=== PATIENT | male | born 1965 | race Caucasian/White ===

== ENCOUNTER 2018-08-24 11:10 | Emergency (ER) | payer OTHER ==
[~2018-08-24] VITALS: Ht 165.1 cm; Wt 63.5 kg
[2018-08-24 11:18] VITALS: BP 146/93; Ht 165.1 cm; Wt 63.5 kg
== END 2018-08-24 11:30 | disposition left against medical advice (07) ==
LOC: ED 11:10
DX: Z53.21 Procedure and treatment not carried out due to patient leaving prior to being seen by health care provider (principal)

== ENCOUNTER 2018-08-24 13:04 | Inpatient (IN) | payer OTHER ==
[~2018-08-24] VITALS: Ht 165.1 cm; Wt 65.8 kg
[2018-08-24 13:15] VITALS: Ht 165.1 cm; Wt 65.8 kg
--- NOTE | 2018-08-24 13:56 | NUR ---
TO [place] AREA AFTER BEING ON WALL/BED DELAY, TRIAGE WAS DONE EARLIER WHILE ON BED DELAY.
--- NOTE | 2018-08-24 14:15 | NUR ---
PT PRESENTS TO ED BIB AMBULANCE AFTER ELOPING FROM ED EARLIER TODAY. PER EMS PT WAS FOUND WALKING IN TRAFFIC. EARLIER TODAY PT WAS BIB AMBULANCE FOR INGESTING UNKNOWN AMOUNTS OF ASPRIN AND HIS FATHERS MEDICATION. PT DENIED SUICIDAL IDEATION DURING FIRST VISIT AND CURRENTLY DENIES SUICIDAL IDEATION. PT ON K[place]A ATTEMPTING TO GET OUT OF BED, AAOX4, RESP E/U, ON FULL CM. WILL CONTINUE TO MONITOR.
[2018-08-24 14:23] LABS: BASOPHIL % 0.1 % (0-2); PLATELET COUNT 288 x10^3mcL (130-400); RED CELL DISTRIBUTION WIDTH 12.9 % (11.5-14.5)
[2018-08-24 14:30] LABS: CALCIUM 9.6 mg/dL (8.5-10.1); CARBON DIOXIDE 28.5 mmol/L (21-32); CHLORIDE SERUM 107 mmol/L (98-107); CREATININE SERUM 1.6 mg/dL (0.7-1.3); GFR1 48 mL/min; GLUCOSE SERUM 99 mg/dL (74-106); POTASSIUM SERUM 4.5 mmol/L (3.5-5.1); SODIUM SERUM 147 mmol/L (136-145)
--- NOTE | 2018-08-24 14:30 | NUR ---
PT IS ATTEMPTING TO GET OUT OF BED. PT BEING UNCOOPERATIVE. UNABLE TO REDIRECT PT ATTENTION. PT PLACE ON 4 POINT SOFT RESTRAINTS, PER DR. ANDERSON ORDER.
[2018-08-24 14:44] LABS: ALBUMIN 4.3 g/dL (3.4-5.0); ALKALINE PHOSPHATASE 71 U/L (46-116); ALT/SGPT 38 U/L (16-63); AST/SGOT 21 U/L (15-37); BILIRUBIN TOTAL 0.7 mg/dL (0.20-1.00); T4(THYROXINE) 8.1 ug/dL (4.7-13.3)
--- NOTE | 2018-08-24 14:54 | NUR ---
PT SISTER KANDICE ROWE [phone]; PT GIVES CONSENT FOR SISTER TO HAVE ALL MEDICAL INFORMATION REGARDING HIS CARE.
--- NOTE | 2018-08-24 16:17 | NUR ---
PT SISTER KANDICE AND BROTHER IN LAW STATED THEY ARE GOING TO GO HOME AND TO UPDATE THEM IF PT STATUS CHANGES. PT CONTINUES TO HALLUCINATE AND IS TALKING ABOUT THINGS THAT AREN'T IN THE ROOM.
[2018-08-24 17:24] LABS: AMPHETAMINE QUAL UR POSITIVE (See below)
--- NOTE | 2018-08-24 18:29 | NUR ---
PT SLEEPING ON GURNEY, CHEST RISE AND FALL NOTED, ON MONITOR, NO ACUTE DISTRESS NOTED AT THIS TIME.
--- NOTE | 2018-08-24 19:13 | NUR ---
REPORT GIVEN TO HECTOR MAY TO ASSUME CARE OF PT.
--- NOTE | 2018-08-24 19:39 | NUR ---
PT RESTING IN A POSITION OF COMFORT AT THIS TIME WITH EYES CLOSED. RESP EVEN AND UNLABORED, NO ACUTE DISTRESS NOTED. PT REMAINS ON FULL CM IN VIEW OF NURSE'S STATION.
--- NOTE | 2018-08-24 20:30 | NUR ---
PT WAKES EASILY TO VERBAL AND TACTILE STIMULI. PT RESTING WITH EYES CLOSED AT THIS TIME CHEST RISE AND FALL NOTED. PT ON FULL CM.
--- NOTE | 2018-08-24 21:20 | NUR ---
PT RESTING WITH EYES CLOSED, RESP EVEN AND UNLABORED, CHEST RISE AND FALL NOTED. PT WAKES TO VERBAL AND TACTILE STIMULI. PT REMAINS ON FULL CM, VSS.
--- NOTE | 2018-08-24 22:12 | NUR ---
SPOKE WITH TOM FROM [facility]. PER TOM, SALICYLATE LEVEL IS NOT DROPPING AT A QUICK ENOUGH RATE. PER TOM, REPEAT SALICYLATE LEVEL AND CMP AT 2300. IF LEVEL IS NOT BELOW 30 AT THAT TIME INITIATE BICARB DRIP. INITIATE IV FLUIDS AT THIS TIME. REPEAT SALICYLATE LEVEL Q2H UNTIL 2 CONSECUTIVE LEVELS ARE TRENDING DOWN. DR SINGH AWARE OF POISION CONTROL SUGGESTIONS.
--- NOTE | 2018-08-24 22:44 | NUR ---
PT CONTINUES TO REST WITH EYES CLOSED, RESP EVEN AND UNLABORED, NO ACUTE DISTRESS NOTED. PT REMAINS ON FULL CM.
[2018-08-25 00:24] LABS: CALCIUM 8.5 mg/dL (8.5-10.1); CREATININE SERUM 1.4 mg/dL (0.7-1.3); POTASSIUM SERUM 4.4 mmol/L (3.5-5.1)
--- NOTE | 2018-08-25 00:50 | NUR ---
PT ASSISTED WITH URINAL TO PROVIDE URINE SAMPLE FOR TESTING.
[2018-08-25 01:31] LABS: UA SPECIFIC GRAVITY 1.025 (1.005-1.035); microscopic required? YES; urine erythrocyte NEGATIVE (NEGATIVE)
--- NOTE | 2018-08-25 01:56 | NUR ---
SPOKE WITH TOM FROM [facility] TO FOLLOW UP ON PT CONDITION. TOM STATES THAT WHEN THE SALICYLATE LEVEL DROPS BELOW 30 THE SODIUM BICARBONATE DRIP CAN BE DISCONTINUED. DR SINGH AWARE.
--- NOTE | 2018-08-25 02:23 | NUR ---
PT SLEEPING ON GURNEY IN POSITION OF COMFORT. EASILY ARROUSEABLE. NO S/S OF DISTRESS. RESP E/U. COMFORT MEASURES IMPLEMENTED. WILL CONTINUE TO MONITOR.
--- NOTE | 2018-08-25 03:00 | NUR ---
R WRIST RESTRAINT REMOVED. PT CALM AND COOPERATIVE AT THIS TIME.
--- NOTE | 2018-08-25 03:20 | NUR ---
PT CONTINUES TO REST IN A POSITION OF COMFORT WITH EYES CLOSED. RESP EVEN AND UNLABORED, NO ACUTE DISTRESS NOTED. PT WAKES EASILY TO VERBAL AND TACTILE STIMULI.
--- NOTE | 2018-08-25 04:00 | NUR ---
LEFT WRIST RESTRAINT REMOVED. PT RESTING IN A POSITION OF COMFORT, RESP EVEN AND UNLABORED, NO ACUTE DISTRESS NOTED. PT REMAINS ON FULL CM.
--- NOTE | 2018-08-25 04:10 | NUR ---
PT RESTING WITH EYES CLOSED AT THIS TIME. RESP EVEN AND UNLABORED. PT REMAINS ON FULL CM IN VIEW OF NURSE'S STATION.
--- NOTE | 2018-08-25 04:42 | NUR ---
RESTRAINTS REMOVED AT THIS TIME. PT AOX4, RESP EVEN AND UNLABORED, NO ACUTE DISTRESS NOTED. PT CALM AND COOPERATIVE AT THIS TIME.
--- NOTE | 2018-08-25 05:30 | NUR ---
PT RESTING WITH EYES CLOSED, CHEST RISE AND FALL NOTED. PT REMAINS IN VIEW OF NURSE'S STATION, ON FULL CM.
[2018-08-25 06:14] LABS: BASOPHIL % 0.9 % (0-2); PLATELET COUNT 231 x10^3mcL (130-400); RED CELL DISTRIBUTION WIDTH 12.9 % (11.5-14.5)
[2018-08-25 06:34] LABS: ALBUMIN 3.6 g/dL (3.4-5.0); ALKALINE PHOSPHATASE 63 U/L (46-116); ALT/SGPT 28 U/L (16-63); AST/SGOT 35 U/L (15-37); BILIRUBIN TOTAL 0.89 mg/dL (0.20-1.00); CALCIUM 8.6 mg/dL (8.5-10.1); CARBON DIOXIDE 29.8 mmol/L (21-32); CHLORIDE SERUM 109 mmol/L (98-107); CREATININE SERUM 1.3 mg/dL (0.7-1.3); GFR1 > 60 mL/min; GLUCOSE SERUM 91 mg/dL (74-106); LIPASE 73 IU/L (73-393); MAGNESIUM 2.4 mg/dL (1.8-2.4); PHOSPHOROUS 3.7 mg/dL (2.5-4.9); POTASSIUM SERUM 3.4 mmol/L (3.5-5.1); SODIUM SERUM 148 mmol/L (136-145); TOTAL PROTEIN, SERUM 6.9 g/dL (6.4-8.2)
--- NOTE | 2018-08-25 06:54 | NUR ---
PT CONTINUES TO REST IN A POSITION OF COMFORT. RESP EVEN AND UNLABORED, NO ACUTE DISTRESS NOTED. PT ON FULL CM IN VIEW OF NURSE'S STATION.
--- NOTE | 2018-08-25 07:17 | NUR ---
RECEIVED REPORT FROM HECTOR MAY
--- NOTE | 2018-08-25 07:34 | NUR ---
REPORT OFF TO HECTOR ANGELES
--- NOTE | 2018-08-25 07:50 | NUR ---
RC'D PT FROM ED VIA [facility] WITH NURSE PRESENT AT BEDSIDE. A/A/O/X4, SPEECH CLEAR AND APPROPRAITE. PT DENIES INTENTIONS OF HARMING SELF OR OTHERS AT THIS TIME PT CURRENTLY 5150 HOLD WITH SITTER PRESENT AT BEDSIDE. ON TELE, DENIES CHEST PAIN/PRESSURE. PALP PULSES, NO EDEMA NOTED. RESPIRATIONS EQUAL AND UNLABORED. LUNGS CTA. ON RA, DENIES SOB. ABDOMEN SOFT AND NONTENDER. ACTIVE BS. DENIES N/V. VOIDS FREELY. SKIN W/D/I. PT DENIES PAIN AT THIS TIME. IV PATENT AND INTACT. BED IN LOW POSITION. CALL LIGHT IN REACH. WILL COTNINUE TO BUD
--- NOTE | 2018-08-25 09:17 | NUR ---
PHARMACY PAGED REGARDING SODIUM BICARB MEDICATION. PER PHARM, MEDICATION NEEDS TO BE REORDERED D/T THE MEDICATION WAS ENTERED A ER MED. WILL PAGE AND NOTIFY DR MARTIN AT THIS TIME.
--- NOTE | 2018-08-25 09:47 | NUR ---
KAE'D CALL FROM JUNE FROM POSITION CONTROL. JUNE UPDATED ON PTS CURRENT CONDITION. PROVIDED WITH RECENT VITALS AND CURRENT LABS. PER JUNE, "PT DOES NOT NEED TO BE ON BICARB AT THIS TIME SINCE LABS HAVE IMPROVED BUT VERIFY WITH DR". AFTER ANSWERING ALL QUESTIONS AND CONCERNS JUNE REPORTS THAT PT HAS BEEN CLEARED THRU [facility] PHONE NUMBER PROVIDED IN CASE AND QUESTIONS WERE TO [place] OR IF WOULD LIKE TO CONTACT, [facility] LOCATION. WILL NOTIFY AND CHARGE NURSE AT THIS TIME
--- NOTE | 2018-08-25 12:33 | NUR ---
PT RESTING IN BED WITH NO APPARENT SIGNS OF DISTRESS. RESPIRAITONS EQUAL AND UNLABORED. ON RA, DENIES SOB. PT DENIES PAIN AT THIS TIME. BED IN LOW POSITION. CALL LIGHT IN REACH. WILL CONTINUE TO MONITOR
[2018-08-25 13:15] VITALS: BP 114/69
[2018-08-25 14:00] VITALS: BP 123/77
--- NOTE | 2018-08-25 17:14 | NUR ---
PT RESTING IN BED WITH NO APPARENT SIGNS OF DISTRESS. RESPIRATIONS EQUAL AND UNLABORED. ON RA, DENIES SOB. PT DENIES PAIN AT THIS TIME. BED IN LOW POSITION. CALL LIGHT IN REACH. MANAGER MEDICAL WRITING PRESENT AT BEDSIDE. WILL CONTINUE TO MONTDULCE
--- NOTE | 2018-08-25 18:34 | NUR ---
PT RESTING IN BED WITH NO APPARENT SIGNS OF DISTRESS. ON TELE, DENIES CHEST PAIN/PRESSURE. RESPIRATIONS EQUAL AND UNLABORED.ON RA, DENIES SOB. ABDOMEN SOFT AND NOTNEDER. DENIES N/V. AMB WITH ASSIST. NO ACUTE SKIN CHANGES NOTED AT THIS TIME. PT DENIERS PAIN AT THIS TIME. IV PATENT AND INTACT. BED IN LOW POSITION. CALL LIGHT IN REACH. [facility]
[2018-08-25 18:37] VITALS: BP 117/76
--- NOTE | 2018-08-25 20:54 | NUR ---
PT. RESTING QUIETLY IN BED, COOPERATIVE W/ CARE. SITTER AT BEDSIDE. PT. ON 5150 STATUS. PT. ALERT, ORIENTED X4. DENIES HEADACHE OR DIZZINESS. BREATH SOUNDS CLEAR THROUGHOUT LUNG BRAGA, RESP. EVEN,UNLABORED. PT. ON RA. NO SOB NOTED. PT. ON TELE 14, NO ECTOPIES NOTED. DENIES CHESTPAIN. PEDAL PULSES STRONG KEVIN. NO EDEMA TO TO EXTREMITIES. ABD. SOFT AND FLAT, BOWEL SOUNDS ACTIVE. DENIES ABD. PAIN, DENIES NAUSEA. IV SITE INTACT. CALL LIGHT WITHIN REACH.
[2018-08-25 21:20] VITALS: BP 113/71
--- NOTE | 2018-08-26 00:10 | NUR ---
PT. RESTING QUIETLY. SLEEPING. PT. BEEN COOPERATIVE THUS FAR THROUGHOUT THE NIGHT. ONE TO ONE SITTER REMAINS AT BEDSIDE. IVF INFUSING WELL. CALL LIGHT WITHIN REACH.
[2018-08-26 05:45] VITALS: BP 126/80
--- NOTE | 2018-08-26 06:20 | NUR ---
PT. W/ UNEVENTFUL NIGHT. COOPERATIVE W/ CARE THROUGHOUT NIGHT. NOT VERY TALKATAIVE, BUT FOLLOWS COMMANDS AND ANSWERS QUESTIONS. PT. DENIES ANY CURRENT PLAN TO HARM SELF. SITTER REMAINS AT BEDSIDE. CALL LIGHT WITHIN REACH. IVF INFUSING WELL. WILL ENDORSE PT. CARE TO INCOMING NURSE.
[2018-08-26 06:36] LABS: CALCIUM 8.8 mg/dL (8.5-10.1); CARBON DIOXIDE 28.5 mmol/L (21-32); CHLORIDE SERUM 108 mmol/L (98-107); CREATININE SERUM 0.9 mg/dL (0.7-1.3); GFR1 > 60 mL/min; GLUCOSE SERUM 86 mg/dL (74-106); SODIUM SERUM 146 mmol/L (136-145)
--- NOTE | 2018-08-26 07:05 | NUR ---
RECEIVED PT FROM NIGHT NURSE. PT IS LAYING DOWN IN BED WITH HOB UP AND EYES OPEN. PT LOOKS TO BE IN NO ACUTE DISTRESS AT THIS TIME AND DENIES ANY PAIN. RESPRIATIONS EVEN AND UNLABORED ON ROOM AIR. IV SITE IS PATENT WITH NO SIGNS OF ERYTHEMA OR SWELLING AND IV FLUIDS INFUSING. TELE MONITOR PRESENT. BED IN LOWEST POSITION, CALL LIGHT WITHIN REACH. WILL CONTINUE TO MONITOR.
[2018-08-26 07:53] VITALS: BP 127/78
[2018-08-26 13:52] VITALS: BP 132/83
[2018-08-26 18:19] VITALS: BP 137/84
--- NOTE | 2018-08-26 18:36 | NUR ---
PT IS LAYING DOWN IN BED WITH HOB UP AND EYES CLOSED RESTING. PT LOOKS TO BE IN NO ACUTE DISTRESS AT THIS TIME AND DENIES ANY PAIN. RESPIRATIONS EVEN AND UNLABORED ON ROOM AIR. PT DENIES ANY THOUGHTS OF SUICIDE AT THIS TIME. IV SITE PATENT WITH NO SIGNS OF ERYTHEMA OR SWELLING WITH IV FLUIDS INFUSING. BED IN LOWEST POSITION, CALL LIGHT WTIHIN REACH. SITTER AT BEDSIDE. WILL ENDORSE TO ONCOMING SHIFT.
--- NOTE | 2018-08-26 19:20 | NUR ---
RECEIVED PT FROM PREVIOUS SHIFT NURSE. PT AOX4. TELE #14, NSR, HR 64. DENIES CP/PRESSURE. DENIES SOB/DIFFICULTY BREATHING, ON RA. IV TO RAC, INTACT AND PATENT. BED IN LOWEST POSITION. CALL LIGHT WITHIN REACH. SITTER AT BEDSIDE. WILL CONTINUE TO MONITOR.
[2018-08-26 19:27] VITALS: BP 127/84
--- NOTE | 2018-08-27 04:43 | NUR ---
PT RESTING IN BED. RR EVEN AND UNLABORED. IN NO ACUTE DISTRESS. CALL LIGHT WITHIN REACH. BED IN LOWEST POSITION. WILL CONTINUE TO MONITOR.
[2018-08-27 05:29] VITALS: BP 132/91
[2018-08-27 06:38] LABS: CALCIUM 8.7 mg/dL (8.5-10.1); CARBON DIOXIDE 29.8 mmol/L (21-32); CHLORIDE SERUM 105 mmol/L (98-107); CREATININE SERUM 0.9 mg/dL (0.7-1.3); GFR1 > 60 mL/min; GLUCOSE SERUM 88 mg/dL (74-106); POTASSIUM SERUM 3.7 mmol/L (3.5-5.1); SODIUM SERUM 141 mmol/L (136-145)
--- NOTE | 2018-08-27 07:05 | NUR ---
RECEIVED PT FROM NIGHT NURSE. PT IS LAYING DOWN IN BED WITH HOB UP, RESTING WITH EYES CLOSED. PT LOOKS TO BE IN NO ACUTE DISTRESS AT THIS TIME. IV SITE PATENT WITH NO SIGNS OF ERYTHEMA OR SWELLING WITH IV FLUIDS INFUSING. TELE MONITOR PRESENT. BED IN LOWEST POSITION, CALL LIGHT WITHIN REACH. WILL CONTINUE TO MONITOR.
[2018-08-27 08:30] VITALS: BP 135/93
[2018-08-27 13:10] VITALS: BP 111/71
--- NOTE | 2018-08-27 14:42 | NUR ---
PT AWAKE, ALERT AND ORIENTED AND DENIES ANY PAIN AT TIME OF DISCHARGE. PT DISCHARGED HOME AND WALKED TO [facility] ACCOMPANIED BY LAWN CARETAKER AND FAMILY MEMBER WITH BELONGINGS IN HAND. EDUCATION PROVIDED TO PT, PT VERBALIZED UNDERSTANDING OF INFORMATION. NO NEW PRESCRIPTIONS FOR THE PT. NO FOLLOW UP APPOINTMENT MADE FOR THE PT, INFORMED TO FOLLOW UP WITH PCP WITHIN A WEEK OF DISCHARGE, PT VERBALIZED UNDERSTANDING. PT AND FAMILY MEMBER REQUESTING CONTACT INFORMATION FOR DR. RIVERA FOR FOLLOW UP AND POSSIBLE MEDICAITONS, INFORMATION PROVIDED WITH DISCHARGE INFORMATION. TELE MONITOR REMOVED AND RETURNED TO TELE STATION. IV REMOVED AND CATHETER FULLY INTACT.
== END 2018-08-27 14:21 | disposition home or self-care (01) | DRG 754 ==
LOC: ED 13:04 → DU 08-25 01:32 → EDBEDREQ 08-25 01:33 → EDBEDREQTM 08-25 01:33 → DU 08-25 08:11
PROVIDERS: Emergency Medicine; Internal Medicine Pulmonary Disease; ADMIT Internal Medicine Pulmonary Disease
DX: F32.9 Major depressive disorder, single episode, unspecified (principal); E87.0 Hyperosmolality and hypernatremia; T39.012A Poisoning by aspirin, intentional self-harm, initial encounter; F55.8 Abuse of other non-psychoactive substances; Z60.2 Problems related to living alone; F15.21 Other stimulant dependence, in remission; Y92.89 Other specified places as the place of occurrence of the external cause; Z91.5 Personal history of self-harm
CPT/HCPCS: 36600; G0378; G0480; J1200; J1630; J2060; J3490; J7030; J7040; J7060